=== PATIENT | male | born 1950 | race Caucasian/White ===

== ENCOUNTER 2022-11-15 08:00 | Outpatient (NON) | payer OTHER, SELFPAY | END 2022-11-15 08:01 | disposition home or self-care (01) | PROVIDERS: PCP Internal Medicine; Visit Provider Nurse Practitioner | DX: D48.5 Neoplasm of uncertain behavior of skin (principal) | CPT/HCPCS: 88305; 88342 ==

== ENCOUNTER 2022-12-02 12:33 | Outpatient (NON) | payer OTHER, SELFPAY | END 2022-12-02 12:34 | disposition home or self-care (01) | LOC: ANHLAB 12-03 12:34 | PROVIDERS: PCP Nurse Practitioner Family; Visit Provider Nurse Practitioner | DX: D48.5 Neoplasm of uncertain behavior of skin (principal) | CPT/HCPCS: 88305; 88342 ==

== ENCOUNTER 2022-12-02 14:25 | Emergency (ER) | payer OTHER, SELFPAY ==
--- NOTE | ~2022-12-02 | CT_ITS ---
EXAMINATION:CT diagnostic chest w con DATE: 12/02/2022 20:45 INDICATION: Jaundice. TECHNIQUE: Computed tomography (CT) of the chest was performed with 75 mL Omnipaque 350 intravenous c ontrast. Automated exposure control and iterative reconstruction technique were employed. The dose-le ngth product (DLP) was 775.77 mGy-cm. COMPARISON: CT abdomen and pelvis 12/02/22 FINDINGS: There are greater than 40 nodules in the lungs in a random distribution measuring up to 8 m m. Calcified right lung nodules and calcified right hilar lymph nodes are consistent with old granulo matous disease. No pleural effusion. The heart size is normal. There are coronary artery calcificatio ns. No pericardial effusion. Partially visualized is an 11.2 cm mass in left hepatic lobe. There is m ild gastrohepatic and periportal lymphadenopathy. There is severe thoracic spondylosis. IMPRESSION: 1. Liver mass, consistent with primary malignancy such as cholangiocarcinoma. Ultrasound-guided core needle biopsy is recommended. 2. Abdominal lymphadenopathy and lung nodules, consistent with metastatic disease. Reviewed, dictated and finalized at location E. IMPRESSION: 1. Liver mass, consistent with primary malignancy such as cholangiocarcinoma. U ltrasound-guided core needle biopsy is recommended. 2. Abdominal lymphadenopathy and lung nodules, consistent with metastatic disea se.
--- NOTE | ~2022-12-02 | CT_ITS ---
EXAMINATION: CT abdomen pelvis w con DATE: 12/02/2022 20:43 INDICATION: Jaundice. TECHNIQUE: Computed tomography (CT) of the abdomen and pelvis was performed with 100 mL Omnipaque 350 intravenous contrast. Automated exposure control and iterative reconstruction technique were employe d. The dose-length product was 1590.53 mGy-cm. COMPARISON: None. FINDINGS: The visualized portions of the lung bases demonstrate mild atelectasis. There are greater t fiore 40 pulmonary nodules in a random distribution measuring up to 8 mm. Calcified right lung nodule a nd calcified right hilar lymph nodes are consistent with old granulomatous disease. No pleural effusi on. The heart size is normal. There are coronary artery calcifications. No pericardial effusion. Ther e is 11.4 cm hypodense mass in left hepatic lobe. There are a few hypodense masses in the liver measu ring up to 6 mm that may be cysts or metastatic disease. Calcifications in the spleen are consistent with old granulomatous disease. The gallbladder is contracted. The pancreas and adrenal glands are no rmal. There is cortical thinning of the kidneys. There is calcified atherosclerosis of the aorta and many of the other arteries. The prostate is mildly enlarged. There is diverticulosis of the colon wit hout evidence of diverticulitis. There are no dilated loops of bowel. The appendix is normal. There i s mild gastrohepatic, periportal, and aortocaval lymphadenopathy. There is no free intraperitoneal fl uid. There is severe thoracic and lumbar spondylosis. IMPRESSION: 1. 11.4 cm hypodense mass in left hepatic lobe, consistent with malignancy such as cholangiocarcinoma . Ultrasound-guided core biopsy is recommended. 2. Abdominal lymphadenopathy and greater than 40 lung nodules, consistent metastatic disease. Small l iver masses may be cysts and/or metastatic disease. Reviewed, dictated and finalized at location E. IMPRESSION: 1. 11.4 cm hypodense mass in left hepatic lobe, consistent with malignancy such as cholangiocarcinoma. Ultrasound-guided core biopsy is recommended. 2. Abdominal lymphadenopathy and greater than 40 lung nodules, consistent metas tatic disease. Small liver masses may be cysts and/or metastatic disease.
[2022-12-02 14:39] VITALS: BP 116/55; PULSE 115; RESP 18; TEMP 36.4; O2SAT 96
[2022-12-02 14:58] LABS: Basophils Absolute Auto 0.1 K/mm3 (0.0-0.1); Basophils Percent Auto 0.6 % (0.2-1.2); Eosinophils Absolute Auto 0.1 K/mm3 (0-0.3); Eosinophils Percent Auto 0.8 % (0-4.4); Hematocrit 39.2 % (42.0-52.0); Immature Granulocyte Absolute 0.13 K/mm3 (0.00-0.031); Immature Granulocyte Percent A 1.3 % (0-0.5); Lymphocytes Absolute Auto 1.23 K/mm3 (0.9-3.2); Lymphocytes Percent Auto 12.5 % (18.3-44.2); Mean Corpuscular HGB Conc 33.2 g/dl (32-36); Mean Corpuscular Hemoglobin 30.7 pg (26-34); Mean Corpuscular Volume 92.5 fl (80-100); Mean Platelet Volume 11.2 fl (7.4-10.4); Monocytes Absolute Auto 1.3 K/mm3 (0.1-0.6); Monocytes Percent Auto 13.4 % (2.6-8.5); Neutrophils Percent Auto 71.4 % (45.5-73.1); Platelet Count Result 331 k/mm3 (150-375); Red Blood Count 4.24 M/mm3 (4.6-6.20); Red Cell Distribution Width 17.1 % (11.5-14.5); White Blood Count 9.8 K/mm3 (4.5-10.0)
[2022-12-02 15:13] LABS: Alanine Aminotransferase 338 U/L (6-50); Albumin Level 4.4 g/dL (3.5-5.1); Alkaline Phosphatase 763 U/L (38-126); Anion Gap 12 mmol/L (8-16); Aspartate Amino Transferase 345 U/L (17-59); Bilirubin,Total 19.4 mg/dL (0.2-1.3); Blood Urea Nitrogen 37 mg/dL (9-20); Calcium 9.8 mg/dL (8.4-10.2); Carbon Dioxide 26 mmol/L (22-30); Chloride 92 mmol/L (98-107); Estimated CRCL calculation 48 ml/min; Estimated Glomerular Filt Rate 40; Glucose 277 mg/dL (65-110); Sodium 130 mmol/L (137-145)
[2022-12-02 18:13] VITALS: BP 104/64; PULSE 78; RESP 18; TEMP 36.8; O2SAT 97
--- NOTE | 2022-12-02 19:36 | ED.GENADULT ---
[facility] - General Adult General Chief complaint: Skin/Abscess/Foreign Body Stated complaint: Skin cancer Time Seen by Provider: 12/02/22 18:19 Source: patient Mode of arrival: ambulatory Limitations: no limitations History of Present Illness HPI narrative: This is a 72-year-old male who presents to the ED with chief complaint of jaundice beginning earlier this morning. Patient states that he was seen in the plastic surgeons office today to remove a possible's cancerous lesion to the top of his head. They sent a biopsy. They noted that his skin looked yellow and wanted him to come to the ER for further evaluation. Patient reports that he has been feeling a little bit of nausea lately and had a couple episodes of minor emesis but otherwise has been feeling fine. Denies any abdominal pain. Denies any history of liver problems or hepatitis. Denies any past surgical history of the abdomen. Endorses some urinary darkness but no pain or frequency. Denies fevers, chills, abnormal weight change, chest pain, shortness of breath, cough. Denies any problems with bowel movements Reports normal colonoscopy within the last 2 years. Related Data Allergies Allergy/AdvReac Type Severity Reaction Status Date / Time ISABELLE Inhibitors Allergy Unknown Verified 01/01/15 17:16 No Known Allergies Allergy Verified 09/17/15 08:01 Review of Systems Review of Systems: All systems as dictated in [facility] Family History Family History (Updated 10/24/15 @ 23:21 by DOCTOR UNKNOWN) Sibling Patient's sister is in good health, Onset Age: 65 Patient's brother is in good health, Onset Age: 55 Father Family history of diabetes mellitus in first degree relative Family history of heart disease in male family member before age 55 Patient's father is Mother Patient's mother is Acute myocardial infarction Social History Social History Smoking status: Never smoker Smoking end date: 03/28/84 Alcohol intake: current Exam Narrative: GENERAL: Well-appearing, well-nourished, and in no acute distress. HEAD: Normocephalic, atraumatic. EYES: Scleral icterus present. PERRLA and EOMI. ENT: Nares clear, no rhinorrhea or epistaxis. Mucous membranes moist. Oropharynx without tonsillar hypertrophy exudate or other lesions. NECK: Supple. No adenopathy or masses. CHEST: No respiratory distress. Clear to auscultation. No wheezes rales or rhonchi HEART: Regular rate and rhythm. No murmur heard. Normal peripheral pulses. ABDOMEN: Soft, nontender, nondistended, normal active bowel sounds. MSK: Normal range of motion. No edema. SKIN: Jaundiced at the head and neck and upper torso. Upper and lower extremities seem to have good color. NEURO: Alert and oriented x3. No focal deficits. PSYCH: Normal mood and affect. Course Vital Signs Vital signs: Vital Signs Temperature 97.5 F L 12/02/22 14:39 Pulse Rate 115 H 12/02/22 14:39 Respiratory Rate 18 12/02/22 14:39 Blood Pressure 116/55 L 12/02/22 14:39 Pulse Oximetry 96 12/02/22 14:39 Oxygen Delivery Room Air 12/02/22 14:39 Temperature 97.5 F L 12/02/22 21:45 Pulse Rate 86 12/02/22 21:45 Respiratory Rate 20 12/02/22 21:45 Blood Pressure 118/64 12/02/22 21:45 Pulse Oximetry 96 12/02/22 21:45 Oxygen Delivery Room Air 12/02/22 14:39 Medical Decision Making MDM Narrative Medical decision making narrative: This is a 72-year-old male who presents to the ED with chief complaint of jaundice of the skin beginning today abruptly. He was sent from his plastics office who was doing a wound check of his skin biopsy that he had to his scalp. Vitals are normal today. Exam does reveal overt jaundice and scleral icterus. He has absolutely no abdominal pain or tenderness. He has not vomited here. Lab work shows elevated bilirubin to 19.4. AST 345, ALT 338 and alk phos 763 today. Chest abdomen and pelvis scan shows evidence of p
[2022-12-02 20:27] LABS: Prothrombin Time 14.1 Seconds (11.1-14.7)
[2022-12-02 21:45] VITALS: BP 118/64; PULSE 86; RESP 20; TEMP 36.4; O2SAT 96
== END 2022-12-02 21:57 | disposition home or self-care (01) ==
PROVIDERS: Emergency Medicine; Emergency Provider Physician Assistant; PCP Nurse Practitioner Family
DX: C22.8 Malignant neoplasm of liver, primary, unspecified as to type (principal); C77.2 Secondary and unspecified malignant neoplasm of intra-abdominal lymph nodes; Z87.891 Personal history of nicotine dependence
CPT/HCPCS: 36415; 71260; 74177; 80053; 85025; 85610; 88305; 88342; 99284; Q9967

== ENCOUNTER → 2022-12-23 08:25 | Outpatient (CLI) | payer OTHER, SELFPAY ==
--- NOTE | ~2022-12-23 | XR_ITS ---
XR abdomen/kub 1V 12/23/2022 08:54 Indication: Displacement of GI prosthetic devices. Liver mass. Procedure: KUB Comparison: CT dated 12/02/2022 Findings: Interval placement of stents in the common bile duct and the pancreatic duct. Bowel gas pat tern nonobstructive. Moderate lower thoracic and lumbar spondylosis. 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 No focal lytic or blastic lesions. No abnormal calcifications. Impression: 1: No acute abdominal abnormality. Reviewed, dictated and finalized at location L. Impression: 1: No acute abdominal abnormality.
== END ==
DX: T85.528A Displacement of other gastrointestinal prosthetic devices, implants and grafts, initial encounter (principal)
CPT/HCPCS: 74018